=== PATIENT | female | born 1945 | race Caucasian/White ===

== ENCOUNTER 2018-05-18 15:15 | Outpatient (RCR) | payer MEDICARE, BC, SELFPAY ==
--- NOTE | 2018-05-12 16:38 | PT.OPPOC ---
Current Diagnoses Difficulty in walking, not elsewhere classified (05/10/18) Weakness (05/10/18) Presence of left artificial knee joint (05/10/18) Provider Visit Care Team Role Provider Type Other Providers Specialty: Address: Phone: Fax: Email: Jayson Solano MD Attending Provider Non-Staff Specialty: Orthopedic Surgery Address: [address] [place] [address], [address], [place], [address] Email: Plan Of Care PT-OP-T Assessment and Plan Start: 05/12/18 10:41 Freq: Status: Active Protocol: Document 05/10/18 15:15 SAK (Rec: 05/12/18 11:10 SAK [id number]) Physical Therapy Assessment Rehab Potential Rehabilitation Potential Good Evaluation Complexity Number of Personal Factors/Comorbidities 3 or More Number of Body Systems Impaired 3 Clinical Presentation at Evaluation Evolving Impairments Impairments Edema Functional Mobility Gait Pain ROM Strength Goals 5 Impairment swelling Inverted Block Operator Goal (LTG) Decrease swelling left knee to minimal level LTG Duration 8 wks 4 Impairment functional mobility Short Term Goal (STG) Improve lower extremity functional scale to at least 50% STG Duration 4 wks [facility] Goal (LTG) Improve lower extremity functional scale to at least 75% 3 Impairment gait Short Term Goal (STG) Patient will be able to ambulate on level surfaces with a cane with minimal to no limp STG Duration 4 wks Inverted Block Operator Goal (LTG) Patient will be able to ambulate on level surfaces and stairs without an assistive device, alternating pattern on stairs. LTG Duration 8 wks 2 Impairment strength STG Duration 4 wks Inverted Block Operator Goal (LTG) Improve left knee strength to 5/5 LTG Duration 8 wks 1 Impairment ROM Short Term Goal (STG) Improve left knee ROM to 5 to 105 degrees STG Duration 4 wks [facility] Goal (LTG) Improve left knee ROM to 0-120 degrees LTG Duration 8 wks Assessment Summary Assessment Patient presents with impairments in left knee ROM and strength, pain and swelling left knee including diagnosis of DVT left LE. She ambulates with antalgic gait using the FWW. She will benefit from PT for TKA rehab to address above goals. Recovery will be complicated by the DVT diagnosis and am awaiting return phone call from surgeon regarding PT guidance in relation to DVT diagnosis Physical Therapy Plan Frequency and Duration Frequency of Treatment 2x/Week Duration of Treatment 2 months Plan of Care Start Date 05/10/18 Plan of Care End Date 07/08/18 Therapeutic Interventions Therapeutic Interventions Aquatic Therapy Gait Training Home Exercise Program Manual Therapy Neuromuscular Re-education Patient/Caregiver Education Self-Care/Home Management Soft Tissue Mobilization Taping Therapeutic Activities Therapeutic Exercises Modalities Cold Pack/Ice Massage Electric Stimulation Next Visit Focus/Plan Next Note Type Treatment Note Next Visit Plan Continue PT for left TKA rehab per surgeon's guidance. Plan of Care Dates Plan of Care Start Date 05/10/18 Plan of Care End Date 07/08/18 Please Sign and Return: I have reviewed this Plan of Care and certify that the skilled therapy services above are required to meet the patient?s needs. Physician Signature Date Printed Name and Credentials Clinical Instructor Signature Printed Name and Credentials
--- NOTE | 2018-05-12 16:38 | PT.OIE ---
Current Diagnoses Difficulty in walking, not elsewhere classified (05/10/18) Weakness (05/10/18) Presence of left artificial knee joint (05/10/18) Provider Visit Care Team Role Provider Type Other Providers Specialty: Address: Phone: Fax: Email: Jayson Solano MD Attending Provider Non-Staff Specialty: Orthopedic Surgery Address: [address] [place] [address], [address], [place], [address] Email: Physical Therapy Initial Evaluation PT-OP-A Visit Information Start: 05/12/18 10:41 Freq: Status: Active Protocol: Document 05/10/18 15:15 SAK (Rec: 05/12/18 11:10 SAK [id number]) Out-Patient Physical Therapy Visit Information Visit Information Visit Type Initial Evaluation Visit Start Time 15:15 Visit Stop Time 16:05 Total Visit Minutes 50 Visit Number 1 Number of A&P MECHANIC Visits 0 Evaluation Information Evaluation Date 05/10/18 Precautions Precautions WBAT PT-OP-B Current Condition Start: 05/12/18 10:41 Freq: Status: Active Protocol: Document 05/10/18 15:15 SAK (Rec: 05/12/18 11:10 SAK [id number]) Current Condition History of Current Condition Onset Date 05/04/18 Current Complaints pain, limited function left LE History of Current Condition left TKA 05/04/18, discharged home 05/06/18. Has now come to [place] for a couple weeks for rehab due to difficult home situation. At very end of today's session patient reports her pain and swelling worsened yesterday and she was in ER this am; diagnosed with a blood clot in her left calf and put on blood thinner Xarelto. Has not talked to surgeon or received guidance from her physician regarding activity or PT. Has been walking with FWW, minimal exercise at home, some icing and elevation. Future Testing and Treatments Planned appointment with VERO at surgeon's office 05/19/18, with surgeon 06/14/18. Treatment Goals Patient/Caregiver Goals return to active lifestyle including taking walks Prior Functional Status Baseline Function- ADL's Independent Baseline Function- Mobility Independent Baseline Function- Gait no device Current Functional Impairments (Reported) Functional Limitations- ADL's painful Functional Limitations- Mobility/Gait painful, uses FWW Functional Limitations- Work/School retired Functional Limitations- Recreation/ unable Hobbies PT-OP-C Subjective Start: 05/12/18 10:41 Freq: Status: Active Protocol: Document 05/10/18 15:15 [facility] (Rec: 05/12/18 11:10 [facility] [id number]) Patient Questionnaires Lower Extremity Functional Scale LEFS Impairment 80 to 99% Impaired (Score 1-16 ) OP-PT Pain Assessment Pain Assessment Grid Paper Pain Assessment Grid Completed Yes Location left knee Intensity 3 Home Pain Medication Use Pain Medications Used Yes Home Pain Medication Frequency every 4-6 hrs Pain Behaviors Pain Behaviors Guarding Wincing PT-OP-G Mobility & Gait Start: 05/12/18 10:41 Freq: Status: Active Protocol: Document 05/10/18 15:15 [facility] (Rec: 05/12/18 11:10 [facility] [id number]) OP Mobility Evaluation Bed Mobility Rolling indep Supine to and from Sit indep Transfers Sit to Stand indep, minimal use left LE Car Transfers min assist Floor Transfers NA OP Gait Assessment Gait Gait Assistance Required: Independent Distance (Feet) 50 Assistive Devices Assistive Device Front Wheeled Walker Gait Deviations General Gait Pattern Antalgic Factors Limiting Gait Function Factors Limiting Gait Function Difficulty Following Directions Limited Range of Motion Pain Stair Climbing Evaluation Evaluation Level of Assist On Stairs Minimal Assistance Devices Stair Climbing Assistive Devices Left Railing Right Railing Technique/Endurance Stair Climbing Technique Step to Step Stair Climbing Set # Repetitions (reps) 1 PT-OP-J Posture/Palpation/Skin Start: 05/12/18 10:41 Freq: Status: Active Protocol: Document 05/10/18 15:15 [facility] (Rec: 05/12/18 11:10 [facility] [id number]) Palpation Assessment Location left LE Palpation Findings Edema Palpation Details mild increase in warmth left knee Skin Assessment Incisional Assessment Incision Appearance/Comments minimal drainage, no signs or symptoms of infection Other Assessments Skin Assessment Comments extensive bruising posterior thigh and knee, skin taut PT-OP-K Range of Motion Start: 05/12/18 10:41 Freq: Status: Active Protocol: Document 05/10/18 15:15 [facility] (Rec: 05/12/18 11:10 [facility] [id number]) Knee Goniometric Range of Motion Knee Measured in Degrees Left Flexion Active (degrees) 82 Flexion Passive (degrees) 85 Extension Active (degrees) 18 Extension Passive (degrees) 5 Right Flexion Active (degrees) 132 Extension Active (degrees) 0 Knee ROM Limitations Knee ROM Limitations Soft Tissue Tightness Pain Swelling PT-OP-M Strength Start: 05/12/18 10:41 Freq: Status: Active Protocol: Document 05/10/18 15:15 SAK (Rec: 05/12/18 11:10 [facility] [id number]) Knee Strength Knee Manual Muscle Testing Left Reason Not Measured Orthopedic Precautions Pain Right Flexion (S2) 5 Normal Extension (L3) 5 Normal Ankle/Foot Strength Ankle and Foot Manual Muscle Testing Left Dorsiflexion (L4) 4+ Good+ Plantarflexion (S1) 4+ Good+ Right Dorsiflexion (L4) 5 Normal Plantarflexion (S1) 5 Normal PT-OP-Q Treatments Start: 05/12/18 10:41 Freq: Status: Active Protocol: Document 05/10/18 15:15 [facility] (Rec: 05/12/18 11:10 [facility] [id number]) Self-Care/Home Management Treatment Education Patient Education Home Exercise Program Pain Management Other Education call surgeon regarding blood clot, recommendations for activity and PT. PT also to call. PT-OP-R Modalities Start: 05/12/18 10:41 Freq: Status: Active Protocol: Document 05/10/18 15:15 [facility] (Rec: 05/12/18 11:10 [facility] [id number]) Hot Pack/Cold Pack Treatment Cold Pack Location left knee Patient Position Hooklying Comments LE's elevated on wedge and bolster PT-OP-T Assessment and Plan Start: 05/12/18 10:41 Freq: Status: Active Protocol: Document 05/10/18 15:15 [facility] (Rec: 05/12/18 11:10 [facility] [id number]) Physical Therapy Assessment Rehab Potential Rehabilitation Potential Good Evaluation Complexity Number of Personal Factors/Comorbidities 3 or More Number of Body Systems Impaired 3 Clinical Presentation at Evaluation Evolving Impairments Impairments Edema Functional Mobility Gait Pain ROM Strength Goals 5 Impairment swelling Set And Exhibit Designer Goal (LTG) Decrease swelling left knee to minimal level LTG Duration 8 wks 4 Impairment functional mobility Short Term Goal (STG) Improve lower extremity functional scale to at least 50% STG Duration 4 wks Set And Exhibit Designer Goal (LTG) Improve lower extremity functional scale to at least 75% 3 Impairment gait Short Term Goal (STG) Patient will be able to ambulate on level surfaces with a cane with minimal to no limp STG Duration 4 wks Skilled Nursing Goal (LTG) Patient will be able to ambulate on level surfaces and stairs without an assistive device, alternating pattern on stairs. LTG Duration 8 wks 2 Impairment strength STG Duration 4 wks Skilled Nursing Goal (LTG) Improve left knee strength to 5/5 LTG Duration 8 wks 1 Impairment ROM Short Term Goal (STG) Improve left knee ROM to 5 to 105 degrees STG Duration 4 wks Set And Exhibit Designer Goal (LTG) Improve left knee ROM to 0-120 degrees LTG Duration 8 wks Assessment Summary Assessment Patient presents with impairments in left knee ROM and strength, pain and swelling left knee including diagnosis of DVT left LE. She ambulates with antalgic gait using the FWW. She will benefit from PT for TKA rehab to address above goals. Recovery will be complicated by the DVT diagnosis and am awaiting return phone call from surgeon regarding PT guidance in relation to DVT diagnosis Physical Therapy Plan Frequency and Duration Frequency of Treatment 2x/Week Duration of Treatment 2 months Plan of Care Start Date 05/10/18 Plan of Care End Date 07/08/18 Therapeutic Interventions Therapeutic Interventions Aquatic Therapy Gait Training Home Exercise Program Manual Therapy Neuromuscular Re-education Patient/Caregiver Education Self-Care/Home Management Soft Tissue Mobilization Taping Therapeutic Activities Therapeutic Exercises Modalities Cold Pack/Ice Massage Electric Stimulation Next Visit Focus/Plan Next Note Type Treatment Note Next Visit Plan Continue PT for left TKA rehab per surgeon's guidance.
--- NOTE | 2018-05-13 15:43 | PT.OTN ---
Current Diagnoses Presence of left artificial knee joint (05/13/18) Physical Therapy Treatment Note PT-OP-A Visit Information Start: 05/12/18 10:41 Freq: Status: Active Protocol: Document 05/13/18 15:31 SA (Rec: 05/13/18 15:43 SA [id number]) Out-Patient Physical Therapy Visit Information Visit Information Visit Type Treatment Note Visit Start Time 13:00 Visit Stop Time 13:48 Total Visit Minutes 48 Visit Number 2 Number of FISHER SEAL Visits 1 PT-OP-B Current Condition Start: 05/12/18 10:41 Freq: Status: Active Protocol: Document 05/10/18 15:15 SAK (Rec: 05/12/18 11:10 SAK [id number]) Current Condition History of Current Condition Onset Date 05/04/18 Current Complaints pain, limited function left LE History of Current Condition left TKA 05/04/18, discharged home 05/06/18. Has now come to [place] for a couple weeks for rehab due to difficult home situation. At very end of today's session patient reports her pain and swelling worsened yesterday and she was in ER this am; diagnosed with a blood clot in her left calf and put on blood thinner Xarelto. Has not talked to surgeon or received guidance from her physician regarding activity or PT. Has been walking with FWW, minimal exercise at home, some icing and elevation. Future Testing and Treatments Planned appointment with VERO at surgeon's office 05/19/18, with surgeon 06/14/18. Treatment Goals Patient/Caregiver Goals return to active lifestyle including taking walks Prior Functional Status Baseline Function- ADL's Independent Baseline Function- Mobility Independent Baseline Function- Gait no device Current Functional Impairments (Reported) Functional Limitations- ADL's painful Functional Limitations- Mobility/Gait painful, uses FWW Functional Limitations- Work/School retired Functional Limitations- Recreation/ unable Hobbies PT-OP-C Subjective Start: 05/12/18 10:41 Freq: Status: Active Protocol: Document 05/13/18 15:31 SA (Rec: 05/13/18 15:43 [id number]) OP-PT Subjective Patient Comments Patient Comments Pt reports doing exercises from hospital daily, uses ice after and continued use of pain medication for pain management. PT-OP-G Mobility & Gait Start: 05/12/18 10:41 Freq: Status: Active Protocol: Document 05/10/18 15:15 [facility] (Rec: 05/12/18 11:10 [facility] [id number]) OP Mobility Evaluation Bed Mobility Rolling indep Supine to and from Sit indep Transfers Sit to Stand indep, minimal use left LE Car Transfers min assist Floor Transfers NA OP Gait Assessment Gait Gait Assistance Required: Independent Distance (Feet) 50 Assistive Devices Assistive Device Front Wheeled Walker Gait Deviations General Gait Pattern Antalgic Factors Limiting Gait Function Factors Limiting Gait Function Difficulty Following Directions Limited Range of Motion Pain Stair Climbing Evaluation Evaluation Level of Assist On Stairs Minimal Assistance Devices Stair Climbing Assistive Devices Left Railing Right Railing Technique/Endurance Stair Climbing Technique Step to Step Stair Climbing Set # Repetitions (reps) 1 PT-OP-J Posture/Palpation/Skin Start: 05/12/18 10:41 Freq: Status: Active Protocol: Document 05/10/18 15:15 [facility] (Rec: 05/12/18 11:10 [facility] [id number]) Palpation Assessment Location left LE Palpation Findings Edema Palpation Details mild increase in warmth left knee Skin Assessment Incisional Assessment Incision Appearance/Comments minimal drainage, no signs or symptoms of infection Other Assessments Skin Assessment Comments extensive bruising posterior thigh and knee, skin taut PT-OP-K Range of Motion Start: 05/12/18 10:41 Freq: Status: Active Protocol: Document 05/10/18 15:15 [facility] (Rec: 05/12/18 11:10 [facility] [id number]) Knee Goniometric Range of Motion Knee Measured in Degrees Left Flexion Active (degrees) 82 Flexion Passive (degrees) 85 Extension Active (degrees) 18 Extension Passive (degrees) 5 Right Flexion Active (degrees) 132 Extension Active (degrees) 0 Knee ROM Limitations Knee ROM Limitations Soft Tissue Tightness Pain Swelling PT-OP-M Strength Start: 05/12/18 10:41 Freq: Status: Active Protocol: Document 05/10/18 15:15 [facility] (Rec: 05/12/18 11:10 [facility] [id number]) Knee Strength Knee Manual Muscle Testing Left Reason Not Measured Orthopedic Precautions Pain Right Flexion (S2) 5 Normal Extension (L3) 5 Normal Ankle/Foot Strength Ankle and Foot Manual Muscle Testing Left Dorsiflexion (L4) 4+ Good+ Plantarflexion (S1) 4+ Good+ Right Dorsiflexion (L4) 5 Normal Plantarflexion (S1) 5 Normal PT-OP-Q Treatments Start: 05/12/18 10:41 Freq: Status: Active Protocol: Document 05/13/18 15:31 SA (Rec: 05/13/18 15:43 SA [email or web address]) Cardio Equipment Recumbent Bicycle Duration (Minutes) 6 Resistance none Seat Position 9 Other pt statrted with rocking, full rotations for 3 min. Therapeutic Exercises Supine Exercises Bridging Side bilateral Reps/Minutes 15x Seated knee flexion stretching Reps/Minutes 3 min pillow squeezes Reps/Minutes 10 x 10 SAQs Reps/Minutes 15x Heel digs Side left Reps/Minutes 10 x 10 PT-OP-R Modalities Start: 05/12/18 10:41 Freq: Status: Active Protocol: Document 05/13/18 15:43 SA (Rec: 05/13/18 15:43 SA [email or web address]) Hot Pack/Cold Pack Treatment Cold Pack Patient Position Hooklying Treatment Duration (minutes) 10 Patient Tolerance Good PT-OP-T Assessment and Plan Start: 05/12/18 10:41 Freq: Status: Active Protocol: Document 05/13/18 15:31 SA (Rec: 05/13/18 15:43 SA [email or web address]) Physical Therapy Assessment Assessment Summary Assessment Notified by patient's DR's office that she has a small / superficial blood DVT. Did not do any manual therapy today and educated patient on pain levels and noted use of compression socks. Pt had friend present and we reviewed her HEP and provided handout for 2 new exercises. Physical Therapy Plan Next Visit Focus/Plan Next Note Type Treatment Note Next Visit Plan Continue to progress ROM/ strengthening program as per MD protocol.
--- NOTE | 2018-05-16 12:47 | PT.OTN ---
Current Diagnoses Presence of left artificial knee joint (05/16/18) Physical Therapy Treatment Note PT-OP-A Visit Information Start: 05/12/18 10:41 Freq: Status: Active Protocol: Document 05/16/18 09:53 LRN (Rec: 05/16/18 10:39 LRN [id number]) Out-Patient Physical Therapy Visit Information Visit Information Visit Type Treatment Note Visit Start Time 09:53 Visit Stop Time 10:50 Total Visit Minutes 57 Visit Number 3 Number of CLINICAL RESEARCH SPEC Visits 0 Evaluation Information Evaluation Date 05/10/18 PT-OP-B Current Condition Start: 05/12/18 10:41 Freq: Status: Active Protocol: Document 05/10/18 15:15 SAK (Rec: 05/12/18 11:10 SAK [id number]) Current Condition History of Current Condition Onset Date 05/04/18 Current Complaints pain, limited function left LE History of Current Condition left TKA 05/04/18, discharged home 05/06/18. Has now come to [place] for a couple weeks for rehab due to difficult home situation. At very end of today's session patient reports her pain and swelling worsened yesterday and she was in ER this am; diagnosed with a blood clot in her left calf and put on blood thinner Xarelto. Has not talked to surgeon or received guidance from her physician regarding activity or PT. Has been walking with FWW, minimal exercise at home, some icing and elevation. Future Testing and Treatments Planned appointment with VERO at surgeon's office 05/19/18, with surgeon 06/14/18. Treatment Goals Patient/Caregiver Goals return to active lifestyle including taking walks Prior Functional Status Baseline Function- ADL's Independent Baseline Function- Mobility Independent Baseline Function- Gait no device Current Functional Impairments (Reported) Functional Limitations- ADL's painful Functional Limitations- Mobility/Gait painful, uses FWW Functional Limitations- Work/School retired Functional Limitations- Recreation/ unable Hobbies PT-OP-C Subjective Start: 05/12/18 10:41 Freq: Status: Active Protocol: Document 05/16/18 09:53 LRN (Rec: 05/16/18 11:26 LRN [id number]) OP-PT Subjective Patient Comments Patient Comments Doing ex's 2x daily. Will try to do more. Has a hard time focusing on too many things during exercise. PT-OP-G Mobility & Gait Start: 05/12/18 10:41 Freq: Status: Active Protocol: Document 05/10/18 15:15 [facility] (Rec: 05/12/18 11:10 [facility] [id number]) OP Mobility Evaluation Bed Mobility Rolling indep Supine to and from Sit indep Transfers Sit to Stand indep, minimal use left LE Car Transfers min assist Floor Transfers NA OP Gait Assessment Gait Gait Assistance Required: Independent Distance (Feet) 50 Assistive Devices Assistive Device Front Wheeled Walker Gait Deviations General Gait Pattern Antalgic Factors Limiting Gait Function Factors Limiting Gait Function Difficulty Following Directions Limited Range of Motion Pain Stair Climbing Evaluation Evaluation Level of Assist On Stairs Minimal Assistance Devices Stair Climbing Assistive Devices Left Railing Right Railing Technique/Endurance Stair Climbing Technique Step to Step Stair Climbing Set # Repetitions (reps) 1 PT-OP-J Posture/Palpation/Skin Start: 05/12/18 10:41 Freq: Status: Active Protocol: Document 05/10/18 15:15 [facility] (Rec: 05/12/18 11:10 [facility] [id number]) Palpation Assessment Location left LE Palpation Findings Edema Palpation Details mild increase in warmth left knee Skin Assessment Incisional Assessment Incision Appearance/Comments minimal drainage, no signs or symptoms of infection Other Assessments Skin Assessment Comments extensive bruising posterior thigh and knee, skin taut PT-OP-K Range of Motion Start: 05/12/18 10:41 Freq: Status: Active Protocol: Document 05/10/18 15:15 [facility] (Rec: 05/12/18 11:10 [facility] [id number]) Knee Goniometric Range of Motion Knee Measured in Degrees Left Flexion Active (degrees) 82 Flexion Passive (degrees) 85 Extension Active (degrees) 18 Extension Passive (degrees) 5 Right Flexion Active (degrees) 132 Extension Active (degrees) 0 Knee ROM Limitations Knee ROM Limitations Soft Tissue Tightness Pain Swelling PT-OP-M Strength Start: 05/12/18 10:41 Freq: Status: Active Protocol: Document 05/10/18 15:15 [facility] (Rec: 05/12/18 11:10 [facility] [id number]) Knee Strength Knee Manual Muscle Testing Left Reason Not Measured Orthopedic Precautions Pain Right Flexion (S2) 5 Normal Extension (L3) 5 Normal Ankle/Foot Strength Ankle and Foot Manual Muscle Testing Left Dorsiflexion (L4) 4+ Good+ Plantarflexion (S1) 4+ Good+ Right Dorsiflexion (L4) 5 Normal Plantarflexion (S1) 5 Normal PT-OP-Q Treatments Start: 05/12/18 10:41 Freq: Status: Active Protocol: Document 05/16/18 09:53 LRN (Rec: 05/16/18 10:39 LRN [id number]) Cardio Equipment Recumbent Bicycle Duration (Minutes) 7 Resistance none Seat Position 6 Other Rocking Therapeutic Exercises Supine Exercises Quad sets Side left Reps/Minutes 10x Comments Hold 5 secs Ankle pumps Side bilateral Reps/Minutes 15x2 Knee flex Supine Exercise Name Active stretch Side left Equipment Used Red T-Ball Reps/Minutes 10x holding 10 secs Bridging Side bilateral Reps/Minutes 15x Seated knee flexion stretching Side left Reps/Minutes 3 min SAQs Side bilateral Reps/Minutes 15x Comments Holding 5 secs Heel digs Supine Exercise Name Digs with Buttock squeeze Side left Reps/Minutes 10 x 10 PT-OP-R Modalities Start: 05/12/18 10:41 Freq: Status: Active Protocol: Document 05/16/18 09:53 LRN (Rec: 05/16/18 12:35 LRN [id number]) Hot Pack/Cold Pack Treatment Cold Pack Location L knee Patient Position Hooklying Treatment Duration (minutes) 10 Patient Tolerance Good PT-OP-T Assessment and Plan Start: 05/12/18 10:41 Freq: Status: Active Protocol: Document 05/16/18 09:53 LRN (Rec: 05/16/18 10:39 LRN [id number]) Physical Therapy Assessment Goals 5 Impairment swelling Chcf Goal (LTG) Decrease swelling left knee to minimal level LTG Duration 8 wks 4 Impairment functional mobility Short Term Goal (STG) Improve lower extremity functional scale to at least 50% STG Duration 4 wks Window Shade Estimator Goal (LTG) Improve lower extremity functional scale to at least 75% 3 Impairment gait Short Term Goal (STG) Patient will be able to ambulate on level surfaces with a cane with minimal to no limp STG Duration 4 wks [facility] Goal (LTG) Patient will be able to ambulate on level surfaces and stairs without an assistive device, alternating pattern on stairs. LTG Duration 8 wks 2 Impairment strength STG Duration 4 wks [facility] Goal (LTG) Improve left knee strength to 5/5 LTG Duration 8 wks 1 Impairment ROM Short Term Goal (STG) Improve left knee ROM to 5 to 105 degrees STG Duration 4 wks [facility] Goal (LTG) Improve left knee ROM to 0-120 degrees LTG Duration 8 wks Progress Towards Goals Progress Comments Pt has passive full L knee extension after stretching. Assessment Summary Assessment Knee flexion is more limited than extension with a mild quad lag. Pt needed discussion and instruction with ex. Physical Therapy Plan Frequency and Duration Frequency of Treatment 2x/Week Duration of Treatment 2 months Plan of Care Start Date 05/10/18 Plan of Care End Date 07/08/18 Next Visit Focus/Plan Next Note Type Treatment Note Next Visit Plan Continue to progress ROM/ strengthening program as per MD protocol.
--- NOTE | 2018-05-18 16:23 | PT.OTN ---
Current Diagnoses Presence of left artificial knee joint (05/18/18) Physical Therapy Treatment Note PT-OP-A Visit Information Start: 05/12/18 10:41 Freq: Status: Active Protocol: Document 05/18/18 15:25 [facility] (Rec: 05/18/18 16:23 [facility] [id number]) Out-Patient Physical Therapy Visit Information Visit Information Visit Type Treatment Note Visit Start Time 15:15 Visit Stop Time 16:12 Total Visit Minutes 57 Visit Number 4 Number of BLOCK FEEDER Visits 0 Evaluation Information Evaluation Date 05/10/18 PT-OP-B Current Condition Start: 05/12/18 10:41 Freq: Status: Active Protocol: Document 05/10/18 15:15 [facility] (Rec: 05/12/18 11:10 [facility] [id number]) Current Condition History of Current Condition Onset Date 05/04/18 Current Complaints pain, limited function left LE History of Current Condition left TKA 05/04/18, discharged home 05/06/18. Has now come to [place] for a couple weeks for rehab due to difficult home situation. At very end of today's session patient reports her pain and swelling worsened yesterday and she was in ER this am; diagnosed with a blood clot in her left calf and put on blood thinner Xarelto. Has not talked to surgeon or received guidance from her physician regarding activity or PT. Has been walking with FWW, minimal exercise at home, some icing and elevation. Future Testing and Treatments Planned appointment with VERO at surgeon's office 05/19/18, with surgeon 06/14/18. Treatment Goals Patient/Caregiver Goals return to active lifestyle including taking walks Prior Functional Status Baseline Function- ADL's Independent Baseline Function- Mobility Independent Baseline Function- Gait no device Current Functional Impairments (Reported) Functional Limitations- ADL's painful Functional Limitations- Mobility/Gait painful, uses FWW Functional Limitations- Work/School retired Functional Limitations- Recreation/ unable Hobbies PT-OP-C Subjective Start: 05/12/18 10:41 Freq: Status: Active Protocol: Document 05/18/18 15:25 [facility] (Rec: 05/18/18 16:23 [facility] [id number]) OP-PT Subjective Patient Comments Patient Comments Reports she didn't do her exercises very well over the weekend and has tightened up. Already did her exercises 2x today. PT-OP-G Mobility & Gait Start: 05/12/18 10:41 Freq: Status: Active Protocol: Document 05/10/18 15:15 [facility] (Rec: 05/12/18 11:10 [facility] [id number]) OP Mobility Evaluation Bed Mobility Rolling indep Supine to and from Sit indep Transfers Sit to Stand indep, minimal use left LE Car Transfers min assist Floor Transfers NA OP Gait Assessment Gait Gait Assistance Required: Independent Distance (Feet) 50 Assistive Devices Assistive Device Front Wheeled Walker Gait Deviations General Gait Pattern Antalgic Factors Limiting Gait Function Factors Limiting Gait Function Difficulty Following Directions Limited Range of Motion Pain Stair Climbing Evaluation Evaluation Level of Assist On Stairs Minimal Assistance Devices Stair Climbing Assistive Devices Left Railing Right Railing Technique/Endurance Stair Climbing Technique Step to Step Stair Climbing Set # Repetitions (reps) 1 PT-OP-J Posture/Palpation/Skin Start: 05/12/18 10:41 Freq: Status: Active Protocol: Document 05/10/18 15:15 [facility] (Rec: 05/12/18 11:10 [facility] [id number]) Palpation Assessment Location left LE Palpation Findings Edema Palpation Details mild increase in warmth left knee Skin Assessment Incisional Assessment Incision Appearance/Comments minimal drainage, no signs or symptoms of infection Other Assessments Skin Assessment Comments extensive bruising posterior thigh and knee, skin taut PT-OP-K Range of Motion Start: 05/12/18 10:41 Freq: Status: Active Protocol: Document 05/10/18 15:15 [facility] (Rec: 05/12/18 11:10 [facility] [id number]) Knee Goniometric Range of Motion Knee Measured in Degrees Left Flexion Active (degrees) 82 Flexion Passive (degrees) 85 Extension Active (degrees) 18 Extension Passive (degrees) 5 Right Flexion Active (degrees) 132 Extension Active (degrees) 0 Knee ROM Limitations Knee ROM Limitations Soft Tissue Tightness Pain Swelling PT-OP-M Strength Start: 05/12/18 10:41 Freq: Status: Active Protocol: Document 05/10/18 15:15 [facility] (Rec: 05/12/18 11:10 [facility] [id number]) Knee Strength Knee Manual Muscle Testing Left Reason Not Measured Orthopedic Precautions Pain Right Flexion (S2) 5 Normal Extension (L3) 5 Normal Ankle/Foot Strength Ankle and Foot Manual Muscle Testing Left Dorsiflexion (L4) 4+ Good+ Plantarflexion (S1) 4+ Good+ Right Dorsiflexion (L4) 5 Normal Plantarflexion (S1) 5 Normal PT-OP-Q Treatments Start: 05/12/18 10:41 Freq: Status: Active Protocol: Document 05/18/18 15:25 [facility] (Rec: 05/18/18 16:23 [facility] [id number]) Cardio Equipment Recumbent Elliptical (Biodex) Duration (Minutes) 5 Resistance 1 Bicycle (Upright) Duration (Minutes) 6 Resistance 1 Seat Position 7 Gym Equipment Shuttle Recovery Bilateral Squats Resistance 50 Reps/Time 10x2 Therapeutic Exercises Supine Exercises wall slide Resistance slider sheet Reps/Minutes 3x Seated knee flexion stretching Side left Reps/Minutes 3 min Standing Exercises HC stretch Equipment Used ANTWAN Reps/Minutes 2x Gait Training Gait Activity 1 Description level gait Device Used FWW Distance/Duration 150 x 2 Treatment Focus relaxed left LE, no limp Manual Therapy Treatment Other Other Manual Treatments Contract/relax for increasing left knee flexion Self-Care/Home Management Treatment Education Patient Education Home Exercise Program Pain Management PT-OP-R Modalities Start: 05/12/18 10:41 Freq: Status: Active Protocol: Document 05/18/18 15:25 [facility] (Rec: 05/18/18 16:23 [facility] [id number]) Hot Pack/Cold Pack Treatment Cold Pack Location L knee Patient Position Hooklying Treatment Duration (minutes) 10 Patient Tolerance Good PT-OP-T Assessment and Plan Start: 05/12/18 10:41 Freq: Status: Active Protocol: Document 05/18/18 15:25 [facility] (Rec: 05/18/18 16:23 [facility] [id number]) Physical Therapy Assessment Goals 5 Impairment swelling Operations Trainer Goal (LTG) Decrease swelling left knee to minimal level LTG Duration 8 wks 4 Impairment functional mobility Short Term Goal (STG) Improve lower extremity functional scale to at least 50% STG Duration 4 wks Operations Trainer Goal (LTG) Improve lower extremity functional scale to at least 75% 3 Impairment gait Short Term Goal (STG) Patient will be able to ambulate on level surfaces with a cane with minimal to no limp STG Duration 4 wks Retirement Goal (LTG) Patient will be able to ambulate on level surfaces and stairs without an assistive device, alternating pattern on stairs. LTG Duration 8 wks 2 Impairment strength STG Duration 4 wks Operations Trainer Goal (LTG) Improve left knee strength to 5/5 LTG Duration 8 wks 1 Impairment ROM Short Term Goal (STG) Improve left knee ROM to 5 to 105 degrees STG Duration 4 wks Operations Trainer Goal (LTG) Improve left knee ROM to 0-120 degrees LTG Duration 8 wks Assessment Summary Assessment Left knee extension 8/0 flexion 90/97. With elevated seat and much encouragement patient able to do full revolution on upright bicycle. Physical Therapy Plan Frequency and Duration Frequency of Treatment 2x/Week Duration of Treatment 2 months Plan of Care Start Date 05/10/18 Plan of Care End Date 07/08/18 Discharge Physical Therapy Discharge Comments Patient moving back home in [place], has appointment to see PT May 20 down there. Will be discharged from PT at [facility].
== END 2018-07-14 09:29 ==
LOC: PHYS 15:15
PROVIDERS: Visit Provider Orthopaedic Surgery
DX: Z96.652 Presence of left artificial knee joint (principal)
CPT/HCPCS: 97010; 97110; 97162

== ENCOUNTER → 2022-10-08 16:47 | Outpatient (CLI) | payer MEDICARE, SELFPAY ==
[2022-10-08 18:28] LABS: COVID-19 CEPHEID 4-PLEX PCR Negative (Negative); Influenza A - CEPHEID Flu A NEGATIVE (NEGATIVE); Influenza B - CEPHEID Flu B NEGATIVE (NEGATIVE); Respiratory Syncytial Virus Negative (Negative)
== END ==
PROVIDERS: Visit Provider Nurse Practitioner Family
DX: J02.9 Acute pharyngitis, unspecified (principal); Z20.822 Contact with and (suspected) exposure to COVID-19
CPT/HCPCS: 0241U; 87070